=== PATIENT | female | born 1970 | race American Indian/Alaskan Native ===

== ENCOUNTER 2020-03-30 09:57 | Day surgery (SDC) | payer OTHER ==
[~2020-03-30 09:57] MED LIST: Dexamethasone 4 MG/ML 5 ML MDV ONE; Glycopyrrolate 0.2 MG/ML SDV ONE; Lactated Ringers 1,000 ML IV SCH; Midazolam 1 MG/ML 2 ML SDV ONE; Ondansetron 4 MG/2 ML SDV ONE; Propofol 200 MG/20 ML SDV ONE; Rocuronium Bromide 50 MG/5 ML Syringe ONE; Sodium Chloride 0.9% 10 ML SDV IV PRN; Sodium Chloride 0.9% 10 ML Syringe FLUSH PRN; Sodium Chloride 0.9% 2.5 ML Syringe FLUSH PRN; ceFAZolin 1 GM in Premix Bag 1 BAG IV ONE; fentaNYL 250 MCG/5 ML SDV ONE
--- NOTE | 2020-03-30 10:37 | PCM.PREANE ---
Preanesthetic Assessment - Anesthesia/Transfusion/Family Hx Anesthesia History: No Prior Anesthesia Family History of Anesthesia Reaction: Yes Family History of Anesthesia Reaction, Other: mother with intraoperative awareness while paralized during either lap chol Transfusion History: Prior Transfusion Without Reaction - Review of Systems General: No Symptoms Pulmonary: No Symptoms Cardiovascular: No Symptoms Gastrointestinal: No Symptoms Neurological: No Symptoms Other: Reports: None - Physical Assessment NPO Status Date: 03/29/20 Height: 5 ft 3 in Weight: 65.771 kg ASA Class: 2 Mental Status: Alert & Oriented x3 Airway Class: Mallampati = 2 Dentition: Reports: Normal Dentition ROM/Head Extension: Full Lungs: Clear to Auscultation, Normal Respiratory Effort Cardiovascular: Regular Rate, Regular Rhythm - Lab Values: Laboratory Last Values Blood Type A NEGATIVE 03/27/20 11:18 Antibody Screen NEGATIVE 03/27/20 11:18 Crossmatch See Detail 03/27/20 11:18 - Allergies Allergies/Adverse Reactions: Allergies Allergy/AdvReac Type Severity Reaction Status Date / Time No Known Allergies Allergy Verified 03/30/20 10:31 - Blood Blood Available: No - Anesthesia Plan Pre-Op Medication Ordered: None - Acknowledgements Anesthesia Type Planned: General Anesthesia Pt an Appropriate Candidate for the Planned Anesthesia: Yes Alternatives and Risks of Anesthesia Discussed w Pt/Guardian: Yes Pt/Guardian Understands and Agrees with Anesthesia Plan: Yes PreAnesthesia Questionnaire HEENT History: Reports: Other (See Below) Other HEENT History: wears glasses/contacts Cardiovascular History: Reports: Other (See Below) Other Cardiovascular History: hx of murmur during Respiratory History: Reports: None Gastrointestinal History: Reports: None Genitourinary History: Reports: None 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: Dysfunctional Uterine Bleeding, Endometriosis, Musculoskeletal History: Reports: None Neurological History: Reports: None Psychiatric History: Reports: Anxiety Endocrine/Metabolic History: Reports: Other (See Below) Other Endocrine/Metabolic History: graves disease Hematologic History: Reports: Anemia, Other (See Below) Other Hematologic History: receiving iron transfusions, mon-wed-fri of this week Immunologic History: Reports: None Oncologic (Cancer) History: Reports: None Dermatologic History: Reports: None - Past Surgical History Head Surgeries/Procedures: Reports: None HEENT Surgical History: Reports: Tonsillectomy Cardiovascular Surgical History: Reports: None Respiratory Surgical History: Reports: None GI Surgical History: Reports: None Female Surgical History: Reports: Other (See Below) Other Female Surgeries/Procedures: laparoscopy x3 Endocrine Surgical History: Reports: None Neurological Surgical History: Reports: None Musculoskeletal Surgical History: Reports: None Oncologic Surgical History: Reports: None Dermatological Surgical History: Reports: None - SUBSTANCE USE Tobacco Use Status *Q: Never Tobacco User - HOME MEDS Home Medications: Home Meds Ascorbic Acid [Vitamin C] 1 tab PO DAILY 03/24/20 [History] Ferrous Gluconate 1 tab PO DAILY 03/24/20 [History] - CURRENT (IN HOUSE) MEDS Current Meds: Current Medications Lactated Ringer's (Ringers, Lactated) 1,000 mls @ 125 mls/hr IV ASDIRECTED JOCELIN Last Admin: 03/30/20 10:30 Dose: 125 mls/hr Documented by: Sodium Chloride (Saline Flush) 10 ml FLUSH ASDIRECTED PRN PRN Reason: Keep Vein Open Sodium Chloride (Saline Flush) 2.5 ml FLUSH ASDIRECTED PRN PRN Reason: Keep Vein Open Sodium Chloride (Normal Saline) 10 ml IV ASDIRECTED PRN PRN Reason: IV Use Discontinued Medications Dexamethasone (Dexamethasone) Confirm Administered Dose 20 mg .ROUTE .STK-MED ONE Stop: 03/30/20 09:44 Fentanyl (Sublimaze) Confirm Administered Dose 250 mcg .ROUTE .STK-MED ONE Stop: 03/30/20 09:42 Glycopyrrolate (Robinul) Confirm Administered Dose 0.4 mg .ROUTE .STK-MED ONE Stop: 03/30/20 09:45 Cefazolin Sodium/Dextrose 1 gm (/ Premix) 50 mls @ 100 mls/hr IV ONETIME ONE Stop: 03/30/20 05:29 Cefazolin Sodium/Dextrose (Ancef) Confirm Administered Dose 50 mls @ as directed .ROUTE .STK-MED ONE Stop: 03/30/20 09:46 Lidocaine HCl (Xylocaine-Mpf 1%) Confirm Administered Dose 5 ml .ROUTE .STK-MED ONE Stop: 03/30/20 09:43 Midazolam HCl (Versed 1 Mg/Ml) Confirm Administered Dose 2 mg .ROUTE .STK-MED ONE Stop: 03/30/20 09:42 Ondansetron HCl (Zofran) Confirm Administered Dose 4 mg .ROUTE .STK-MED ONE Stop: 03/30/20 09:44 Propofol (Diprivan 20 Ml) Confirm Administered Dose 200 mg .ROUTE .STK-MED ONE Stop: 03/30/20 09:42 Rocuronium [place] (Rocuronium [place]) Confirm Administered Dose 50 mg .ROUTE .STK-MED ONE Stop: 03/30/20 09:43
[2020-03-30] MEDS ORDERED: Methylene Blue 50 MG/10 ML Ampule ONE (11:32)
[2020-03-30] MEDS ORDERED: Fluorescein 5 ML Vial ONE (11:32)
[2020-03-30] MEDS ORDERED: Bupivacaine 0.25% 10 ML SDV ONE (11:33)
[2020-03-30] MEDS ORDERED: Succinylcholine/Sod PF 100 MG/5 ML SYRINGE IV ONE (11:35)
[2020-03-30] MEDS ORDERED: ePHEDrine 50 MG/ML SDV ONE (12:17)
[2020-03-30] MEDS ORDERED: Sodium Chloride 0.9% 20 ML ONE (12:18)
[2020-03-30] MEDS ORDERED: Glycopyrrolate 0.2 MG/ML SDV ONE (12:36)
[2020-03-30] MEDS ORDERED: fentaNYL 100 MCG/2 ML SDV IVPUSH PRN (13:07)
[2020-03-30] MEDS ORDERED: Promethazine 25 MG/ML SDV IM PRN (13:37)
[2020-03-30] MEDS ORDERED: Ondansetron 4 MG/2 ML SDV IVPUSH PRN (13:37)
[2020-03-30] MEDS ORDERED: Ketorolac 30 MG/ML SDV IVPUSH ONE (13:37)
[2020-03-30] MEDS ORDERED: Morphine 4 MG/ML Syringe IVPUSH PRN (13:37)
[2020-03-30] MEDS ORDERED: Acetaminophen/oxyCODONE 325-5 MG Tab PO PRN (13:37)
[2020-03-30] MEDS ORDERED: Belladonna Alkaloids/Opium 16.2-30 MG Supp RECTAL PRN (13:39)
[2020-03-30] MEDS ORDERED: Lactated Ringers 1,000 ML IV SCH (13:45)
--- NOTE | 2020-03-30 13:52 | PCM.OPNOTE ---
- General Post-Op/Procedure Note Date of Surgery/Procedure: 03/30/20 Operative Procedure(s): LAVH/BSO/cystoscopy. Excisional biopsy of right inner thigh skin lesion Findings: Bulky fibroid uterus, bilateral patent ureters. 5 mm right inner thigh skin lesion Pre Op Diagnosis: menorrhagia. Iron deficiency anemia. Skin lesion right thigh Post-Op Diagnosis: Same Anesthesia Technique: General ET Tube Primary Surgeon: Ester Rose Firebreak Cutter: Mar Aguillon Fluid Replacement, Intraop: 1,500 EBL in mLs: 250 Complications: none known Condition: Good Free Text/Narrative:: Dictation [id number]
--- NOTE | 2020-03-30 14:18 | PCM.POSTAN ---
POST ANESTHESIA ASSESSMENT - MENTAL STATUS Mental Status: Alert, Oriented - VITAL SIGNS Vital Signs: Last Vital Signs Temp 36.6 C 03/30/20 13:38 Pulse 57 L 03/30/20 14:15 Resp 10 L 03/30/20 14:15 BP 111/39 L 03/30/20 14:15 Pulse Ox 100 03/30/20 14:15 - RESPIRATORY Respiratory Status: Respiratory Rate WNL, Airway Patent, O2 Saturation Stable - CARDIOVASCULAR CV Status: Pulse Rate WNL, Blood Pressure Stable - GASTROINTESTINAL GI Status: No Symptoms - POST OP HYDRATION Hydration Status: Adequate & Stable
[2020-03-30] MEDS: Acetaminophen/oxyCODONE 325-5 MG Tab PO PRN ×2 (15:41→21:00)
[2020-03-30] MEDS: Ketorolac 30 MG/ML SDV IVPUSH PRN (18:27)
--- NOTE | 2020-03-30 20:31 | OR ---
SURGEON: Ester Rose M.D. DATE OF PROCEDURE: 03/30/2020 PREOPERATIVE DIAGNOSES: 1. Menorrhagia. 2. Iron-deficiency anemia. 3. Right inner thigh skin lesion. POSTOPERATIVE DIAGNOSES: 1. Menorrhagia. 2. Iron-deficiency anemia. 3. Right inner thigh skin lesion. PROCEDURES: 1. Laparoscopic-assisted vaginal hysterectomy with bilateral salpingo- oophorectomy and cystoscopy. 2. Excisional biopsy of a right inner thigh skin lesion. PRIMARY SURGEON: Ester Rose M.D. TRAVEL TICKETING REVIEWER: Mar Aguillon MD ANESTHESIA: General endotracheal anesthesia. FLUIDS: 1500 mL of crystalloid. ESTIMATED BLOOD LOSS: 250 mL. COMPLICATIONS: None known. FINDINGS: A bulky fibroid uterus, mesentery of the anterior abdominal wall adhesion, a 5 mm right raised skin lesion on the inner thigh, and bilateral patent ureters. DISPOSITION: The patient to the PACU, stable. SPECIMEN: Pathology. PROCEDURE DETAILS: Ophelia is a 49-year-old female, who has ongoing difficulties with menorrhagia. She will bleed to the point of passing large blood clots and saturating more than a pad in 30 minutes. Preoperatively, hemoglobin was 9. She underwent IV iron transfusions and increased her hemoglobin to 10.2. She was typed and crossed for 2 units of packed red blood cells. Endometrial biopsy was benign. Options have been discussed with the patient, and she would like to proceed with definitive surgical intervention. Given family history of breast cancer and her personal history of endometriosis, she would prefer that both tubes and ovaries are removed at the time of the procedure. The patient was taken to the operating room, where she underwent general anesthesia, was placed in modified dorsal lithotomy position, and was prepped and draped in the usual sterile fashion. SCDs to the lower extremities. Levy to gravity. She received Ancef prophylactically, and a time-out was performed. The right inner thigh skin lesion was identified. In an elliptical fashion, the skin edges were incised, and the lesion was now excised. Specimen to Pathology. The skin edges were now reapproximated using 4-0 Monocryl in an inverted mattress suture technique. Hemostasis appeared evident. Attention was now turned to placing vaginal instrumentation. A speculum was introduced in the vagina. The anterior lip of the cervix was grasped with a Justyn clamp. A HUMI uterine manipulator was gently placed. The balloon was insufflated. The speculum and Justyn were now removed. Attention was turned abdominally. Gloves were changed. Infraumbilically, 0.25% Marcaine was introduced. Please see the nurse's notes for the total amount of local dispensed during the procedure. A 5 mm infraumbilical midline skin incision was created. The anterior abdominal wall was tented upwards. A Veress needle was gently introduced. A saline hanging drop test was performed. Pneumoperitoneum was achieved. The Veress needle was removed. A 5 mm trocar was introduced with the laparoscope. Peritoneal contents were identified. There was an anterior abdominal wall mesenteric adhesion noted. However, visualization was still adequate at this time. The uterus was bulky but was mobile. Left lower quadrant and right lower quadrant 5 mm trocars were placed after prepping this region with 0.25% Marcaine and creating a 5 mm skin incision. With the trocars in place, I was able to lyse the mesenteric and anterior abdominal wall adhesion with the LigaSure near the edge of the anterior abdominal wall. The right ureter was seen peristalsing well away from the operative field, followed by the left. The left fimbria was able to be grasped and tented upwards, and using the LigaSure, the infundibulopelvic ligament was now secured, cauterized, and transected, followed by the medial leaf of the broad ligament, down through the round ligament, to the upper portion of the cardinal ligament, and to the base of the cardinal ligament. At this point, I was able to tent the anterior uterovesical peritoneum upwards and incise this using the LigaSure, mobilizing the bladder away from the lower uterine segment and the cervix. In a similar fashion, this was performed on the patient's right side. I was able to secure the fimbria and secure the infundibulopelvic ligament down through the broad ligament and through the round ligament to the upper portion of the cardinal ligament and the base of the cardinal ligament. The patient had a fair amount of back bleeding. I did take extra steps with extra cautery with the LigaSure prior to transecting any of the pedicles. All laparoscopic instruments were now removed. Pneumoperitoneum was released. Attention was turned vaginally. A weighted speculum was placed in the vagina. An anterior [place] was placed in the anterior cul-de-sac, and the cervix was grasped with a Justyn clamp. The cervix was now circumscribed with Bovie cautery anteriorly and posteriorly. The overlying mucosa was dissected away from the underlying peritoneum. The posterior peritoneum was tented downwards and entered sharply. A longer weighted speculum replaced the shorter. The anterior peritoneum was also entered, and the [place] was placed to mobilize the bladder away from the uterus. The back-filled bladder was now released. A Yusuf clamp was utilized to secure the uterosacral ligament on either side, transect it, and suture ligate it with 2-0 Vicryl. A further pedicle on the left side was able to now be secured, transected, and suture ligated. Two further pedicles on the right side were now able to be secured with a Yusuf clamp, transected, and suture ligated. The uterus, fallopian tubes, and ovaries were now removed in their entirety and will be sent to Pathology for further analysis. The pedicles were inspected. The uterosacral ligaments were plicated to the vaginal apex on either side. The posterior cul-de-sac was closed using a culdoplasty suture with 2-0 Vicryl, reefing through the left uterosacral ligament, incorporating the posterior peritoneum, and through the right uterosacral ligament pedicle. The cuff was now closed using 0 Vicryl in a continuous running locked fashion and suturing and then tying down the culdoplastic suture. Hemostasis appeared evident. Fluorescein had been introduced in the IV. The Levy catheter balloon was now released. The catheter was removed, and a cystoscope was introduced in the bladder using normal saline as a distention media. I was able to visualize the dome of the bladder, which appeared to be intact, followed by the trigone. The right ureteral orifice followed by the left ureteral orifice had fluorescein- dyed urine streaming from them with good jets noted, helping to ensure ureteral patency. The bladder was now drained. The cystoscope was removed. The Levy catheter was replaced. The vaginal cuff was once again inspected and found to be hemostatic. Attention was now turned to the abdomen once again. Gloves were changed. Pneumoperitoneum was once again achieved. The pelvis and pedicles were inspected, copiously irrigated, and suction dried. The pedicles appeared hemostatic even with relief pressure decreased to 5 mmHg. Therefore, the pelvis once again was irrigated and suction dried. The pneumoperitoneum was released in its entirety. The trocars were removed under direct visualization, followed by the laparoscope and the infraumbilical trocar. The skin edges were reapproximated using 4-0 Monocryl in a subcuticular fashion. Sponge, instrument, and needle counts were correct x2. The patient tolerated the procedure well overall. She will go to the PACU in stable condition. Specimens to pathology. ENZO / NEDA /[id number]
[2020-03-30] MEDS: Docusate Sodium 100 MG Cap PO SCH (21:01)
[2020-03-31] MEDS: Ketorolac 30 MG/ML SDV IVPUSH PRN ×2 (00:39→09:05)
[2020-03-31] MEDS: Acetaminophen/oxyCODONE 325-5 MG Tab PO PRN (04:38)
[2020-03-31 06:21] LABS: BLOOD UREA NITROGEN,BUN 6 mg/dL (7.0-18.0); CARBON DIOXIDE,CO2 24.6 mmol/L (21.0-32.0); CHLORIDE,CL 98 mmol/L (98-107); GLUCOSE RANDOM 121 mg/dL (74-106); POTASSIUM,K 3.9 mmol/L (3.5-5.1); SODIUM,NA 130 mmol/L (136-145)
--- NOTE | 2020-03-31 08:26 | PCM.SURGPN ---
- General Info Date of Service: 03/31/20 POD#: 1 Functional Status: Reports: Pain Controlled, Tolerating Diet, Ambulating - Review of Systems General: Reports: Fatigue. Denies: Fever, Weakness Pulmonary: Denies: Shortness of Breath Cardiovascular: Denies: Chest Pain, Palpitations, Lightheadedness Gastrointestinal: Reports: Abdominal Pain (some cramping, pain meds help alleviate). Denies: Nausea, Vomiting Genitourinary: Denies: Flank Pain Musculoskeletal: Reports: No Symptoms Skin: Reports: No Symptoms Neurological: Reports: No Symptoms Psychiatric: Reports: No Symptoms - Patient Data Vitals - Most Recent: Last Vital Signs Temp 36.6 C 03/31/20 04:33 Pulse 59 L 03/31/20 04:33 Resp 14 03/31/20 04:33 BP 104/59 L 03/31/20 04:33 Pulse Ox 98 03/31/20 04:33 Weight - Most Recent: 65.771 kg I&O - Last 24 Hours: Intake & Output 03/30/20 03/31/20 03/31/20 22:59 06:59 14:59 Intake Total 635 3680 Output Total 1200 Balance 635 2480 Lab Results Last 24 Hrs: Laboratory Results - last 24 hr 03/27/20 03/31/20 03/31/20 Range/Units 11:18 05:22 05:22 WBC 12.35 H (4.0-11.0) K/uL RBC 3.78 L (4.30-5.90) M/uL Hgb 8.9 L (12.0-16.0) g/dL Hct 29.4 L (36.0-46.0) % MCV 77.8 L (80.0-98.0) fL MCH 23.5 L (27.0-32.0) pg MCHC 30.3 L (31.0-37.0) g/dL RDW Std Deviation 57.4 (28.0-62.0) fl RDW Coeff of [place] 21 H (11.0-15.0) % Plt Count 339 (150-400) K/uL MPV 10.50 (7.40-12.00) fL Neut % (Auto) 82.7 H (48.0-80.0) % Lymph % (Auto) 11.5 L (16.0-40.0) % Iron % (Auto) 5.6 (0.0-15.0) % Eos % (Auto) 0.1 (0.0-7.0) % Baso % (Auto) 0.1 (0.0-1.5) % Neut # (Auto) 10.2 H (1.4-5.7) K/uL Lymph # (Auto) 1.4 (0.6-2.4) K/uL Iron # (Auto) 0.7 (0.0-0.8) K/uL Eos # (Auto) 0.0 (0.0-0.7) K/uL Baso # (Auto) 0.0 (0.0-0.1) K/uL Nucleated RBC % 0.0 /100WBC Nucleated RBCs # 0 K/uL Sodium 130 L (136-145) mmol/L Potassium 3.9 (3.5-5.1) mmol/L Chloride 98 (98-107) mmol/L Carbon Dioxide 24.6 (21.0-32.0) mmol/L BUN 6 L (7.0-18.0) mg/dL Creatinine 0.8 (0.6-1.0) mg/dL Est Cr Clr Drug Dosing 71.14 mL/min Estimated GFR (MDRD) > 60.0 ml/min Glucose 121 H (74-106) mg/dL Calcium 8.2 L (8.5-10.1) mg/dL Crossmatch See Detail Med Orders - Current: Current Medications Belladonna Alkaloids/Opium (B & O Supprettes No. 15a) 1 supp RECTAL Q4H PRN PRN Reason: Abdominal Pain Last Admin: 03/30/20 16:17 Dose: 1 supp Documented by: Docusate Sodium (Colace) 100 mg PO BID [facility] Last Admin: 03/30/20 21:01 Dose: 100 mg Documented by: Lactated Ringer's (Ringers, Lactated) 1,000 mls @ 125 mls/hr IV ASDIRECTED [facility] Last Admin: 03/30/20 15:41 Dose: 125 mls/hr Documented by: Ketorolac Tromethamine (Toradol) 30 mg IVPUSH Q6H PRN PRN Reason: Pain (severe 7-10) Stop: 04/04/20 13:37 Last Admin: 03/31/20 00:39 Dose: 30 mg Documented by: Morphine Sulfate (Morphine) 4 mg IVPUSH Q2H PRN PRN Reason: Pain (severe 7-10) Ondansetron HCl (Zofran) 4 mg IVPUSH Q6H PRN PRN Reason: Nausea/Vomiting Last Admin: 03/30/20 15:41 Dose: 4 mg Documented by: Oxycodone/Acetaminophen (Percocet 325-5 Mg) 1 tab PO Q4H PRN PRN Reason: Pain (moderate 4-6) Oxycodone/Acetaminophen (Percocet 325-5 Mg) 2 tab PO Q4H PRN PRN Reason: Pain (moderate 4-6) Last Admin: 03/31/20 04:38 Dose: 2 tab Documented by: Promethazine HCl (Phenergan) 25 mg IM Q6H PRN PRN Reason: Nausea/Vomiting Sodium Chloride (Saline Flush) 10 ml FLUSH ASDIRECTED PRN PRN Reason: Keep Vein Open Sodium Chloride (Saline Flush) 2.5 ml FLUSH ASDIRECTED PRN PRN Reason: Keep Vein Open Sodium Chloride (Normal Saline) 10 ml IV ASDIRECTED PRN PRN Reason: IV Use Discontinued Medications Bupivacaine HCl (Sensorcaine-Mpf 0.25%) Confirm Administered Dose 10 ml .ROUTE .STK-MED ONE Stop: 03/30/20 11:34 Dexamethasone (Dexamethasone) Confirm Administered Dose 20 mg .ROUTE .STK-MED ONE Stop: 03/30/20 09:44 Ephedrine Sulfate (Ephedrine Sulfate) Confirm Administered Dose 50 mg .ROUTE .STK-MED ONE Stop: 03/30/20 12:18 Fentanyl (Sublimaze) Confirm Administered Dose 250 mcg .ROUTE .STK-MED ONE Stop: 03/30/20 09:42 Fentanyl (Sublimaze) 50 mcg IVPUSH Q5M PRN PRN Reason: Pain (severe 7-10) Stop: 03/30/20 15:00 Last Admin: 03/30/20 14:04 Dose: 50 mcg Documented by: Fluorescein Sodium (Ak-Fluor) Confirm Administered Dose 5 ml .ROUTE .STK-MED ONE Stop: 03/30/20 11:33 Glycopyrrolate (Robinul) Confirm Administered Dose 0.4 mg .ROUTE .STK-MED ONE Stop: 03/30/20 09:45 Glycopyrrolate (Robinul) Confirm Administered Dose 0.2 mg .ROUTE .STK-MED ONE Stop: 03/30/20 12:37 Cefazolin Sodium/Dextrose 1 gm (/ Premix) 50 mls @ 100 mls/hr IV ONETIME ONE Stop: 03/30/20 05:29 Last Admin: 03/30/20 11:58 Dose: 100 mls/hr Documented by: Lactated Ringer's (Ringers, Lactated) 1,000 mls @ 125 mls/hr IV ASDIRECTED JOCELIN Last Admin: 03/30/20 10:30 Dose: 125 mls/hr Documented by: Cefazolin Sodium/Dextrose (Ancef) Confirm Administered Dose 50 mls @ as directed .ROUTE .STK-MED ONE Stop: 03/30/20 09:46 Sodium Chloride (Normal Saline) Confirm Administered Dose 20 mls @ as directed .ROUTE .STK-MED ONE Stop: 03/30/20 12:19 Ketorolac Tromethamine (Toradol) 30 mg IVPUSH ONETIME ONE Stop: 03/30/20 13:38 Last Admin: 03/30/20 13:55 Dose: 30 mg Documented by: Lidocaine HCl (Xylocaine-Mpf 1%) Confirm Administered Dose 5 ml .ROUTE .STK-MED ONE Stop: 03/30/20 09:43 Methylene Blue (Provayblue) Confirm Administered Dose 50 mg .ROUTE .STK-MED ONE Stop: 03/30/20 11:33 Midazolam HCl (Versed 1 Mg/Ml) Confirm Administered Dose 2 mg .ROUTE .STK-MED ONE Stop: 03/30/20 09:42 Ondansetron HCl (Zofran) Confirm Administered Dose 4 mg .ROUTE .STK-MED ONE Stop: 03/30/20 09:44 Propofol (Diprivan 20 Ml) Confirm Administered Dose 200 mg .ROUTE .STK-MED ONE Stop: 03/30/20 09:42 Rocuronium [place] (Rocuronium [place]) Confirm Administered Dose 50 mg .ROUTE .STK-MED ONE Stop: 03/30/20 09:43 - Exam Wound/Incisions: Dressing Dry and Intact General: Alert, Oriented Lungs: Normal Respiratory Effort Cardiovascular: Regular Rate, Regular Rhythm GI/Abdominal Exam: Normal Bowel Sounds, Soft. No: Guarding, Rigid Extremities: Pedal Edema (trace). No: Leroy's Sign Skin: Warm, Dry, Intact Neurological: No New Focal Deficit Psy/Mental Status: Alert, Normal Affect, Normal Mood Sepsis Event Note - Evaluation Sepsis Screening Result: No Definite Risk - Focused Exam Vital Signs: Vital Signs Temp Pulse Resp BP Pulse Ox 03/31/20 04:33 36.6 C 59 L 14 104/59 L 98 03/31/20 00:35 36.8 C 70 15 98/56 L 96 - Problem List & Annotations (1) Status post hysterectomy SNOMED Code(s): 174952487, 922312847, 018774254 Code(s): Z90.710 - ACQUIRED ABSENCE OF BOTH CERVIX AND UTERUS Status: Acute Current Visit: Yes (2) Menorrhagia SNOMED Code(s): 316629367 Code(s): N92.0 - EXCESSIVE AND FREQUENT MENSTRUATION WITH REGULAR CYCLE Status: Acute Current Visit: Yes - Problem List Review Problem List Initiated/Reviewed/Updated: Yes - My Orders Last 24 Hours: Active Orders 24 hr Category Date Time Status Patient Status [ADT] Routine ADT 03/30/20 13:37 Active Antiembolic Devices [RC] PER UNIT ROUTINE Care 03/30/20 13:38 Active Notify Provider Intake and Out [RC] ASDIRECTED Care 03/30/20 13:37 Active Notify Provider Vital Signs [RC] ASDIRECTED Care 03/30/20 13:37 Active Oxygen Therapy [RC] ASDIRECTED Care 03/30/20 13:37 Active RT Incentive Spirometry [RC] Q2HWA Care 03/30/20 13:37 Active Ready for Discharge [RC] PER UNIT ROUTINE Care 03/31/20 08:22 Ordered Up With Assistance [RC] PER UNIT ROUTINE Care 03/30/20 13:37 Active Up ad Ina [RC] PER UNIT ROUTINE Care 03/30/20 13:37 Active Urinary Catheter Removal [RC] Per Unit Routine Care 03/30/20 13:37 Active Vital Signs [RC] PER UNIT ROUTINE Care 03/30/20 13:37 Active Regular Diet [DIET] Diet 03/30/20 Dinner Active Acetaminophen/oxyCODONE [Percocet 325-5 MG] Med 03/30/20 13:37 Active 1 tab PO Q4H PRN Acetaminophen/oxyCODONE [Percocet 325-5 MG] Med 03/30/20 13:37 Active 2 tab PO Q4H PRN Belladonna/Opium [B & O Supprettes No. 15A] Med 03/30/20 13:39 Active 1 supp RECTAL Q4H PRN Docusate Sodium [Colace] Med 03/30/20 21:00 Active 100 mg PO BID Ketorolac [Toradol] Med 03/30/20 13:37 Active 30 mg IVPUSH Q6H PRN Lactated Ringers [Ringers, Lactated] 1,000 ml Med 03/30/20 13:45 Active IV ASDIRECTED Morphine Med 03/30/20 13:37 Active 4 mg IVPUSH Q2H PRN Ondansetron [Zofran] Med 03/30/20 13:37 Active 4 mg IVPUSH Q6H PRN Promethazine [Phenergan] Med 03/30/20 13:37 Active 25 mg IM Q6H PRN Perineal Care [OM.PC] Per Unit Routine Oth 03/30/20 13:38 Ordered Peripheral IV Discontinue [OM.PC] Routine Oth 03/30/20 13:37 Ordered Sequential Compression Device [OM.PC] Per Unit Routine Oth 03/30/20 13:37 Ordered Resuscitation Status Routine Resus Stat 03/30/20 13:37 Ordered Medication Orders Belladonna Alkaloids/Opium (B & O Supprettes No. 15a) 1 supp RECTAL Q4H PRN PRN Reason: Abdominal Pain Last Admin: 03/30/20 16:17 Dose: 1 supp Documented by: JACKIE Docusate Sodium (Colace) 100 mg PO BID [facility] Last Admin: 03/30/20 21:01 Dose: 100 mg Documented by: GRAYSON Lactated Ringer's (Ringers, Lactated) 1,000 mls @ 125 mls/hr IV ASDIRECTED JOCELIN Last Admin: 03/30/20 15:41 Dose: 125 mls/hr Documented by: JACKIE Ketorolac Tromethamine (Toradol) 30 mg IVPUSH Q6H PRN PRN Reason: Pain (severe 7-10) Stop: 04/04/20 13:37 Last Admin: 03/31/20 00:39 Dose: 30 mg Documented by: Admin: 03/30/20 18:27 Dose: 30 mg Documented by: JACKIE Morphine Sulfate (Morphine) 4 mg IVPUSH Q2H PRN PRN Reason: Pain (severe 7-10) Ondansetron HCl (Zofran) 4 mg IVPUSH Q6H PRN PRN Reason: Nausea/Vomiting Last Admin: 03/30/20 15:41 Dose: 4 mg Documented by: JACKIE Oxycodone/Acetaminophen (Percocet 325-5 Mg) 1 tab PO Q4H PRN PRN Reason: Pain (moderate 4-6) Oxycodone/Acetaminophen (Percocet 325-5 Mg) 2 tab PO Q4H PRN PRN Reason: Pain (moderate 4-6) Last Admin: 03/31/20 04:38 Dose: 2 tab Documented by: Admin: 03/30/20 21:00 Dose: 2 tab Documented by: Admin: 03/30/20 15:41 Dose: 2 tab Documented by: JACKIE Promethazine HCl (Phenergan) 25 mg IM Q6H PRN PRN Reason: Nausea/Vomiting Sodium Chloride (Saline Flush) 10 ml FLUSH ASDIRECTED PRN PRN Reason: Keep Vein Open Sodium Chloride (Saline Flush) 2.5 ml FLUSH ASDIRECTED PRN PRN Reason: Keep Vein Open Sodium Chloride (Normal Saline) 10 ml IV ASDIRECTED PRN PRN Reason: IV Use - Assessment Assessment (Free Text/Narrative):: POD 1 status post LAVH/BSO - Plan Plan (Free Text/Narrative):: VS are stable and labs relatively stable given chronic anemia. Will continue oral iron supplementation. Patient feels ready to go home. Discharge instructions reviewed. Follow up at [facility] 2 and 6 weeks. Infection and bleeding warnings reviewed. Will reevaluate CBC, BMP at postop visit. Discharge to home today.
[2020-03-31] MEDS: Docusate Sodium 100 MG Cap PO SCH (09:04)
== END 2020-03-31 10:00 | disposition home or self-care (01) ==
LOC: MW.SDS 09:57 → MW.MS 15:35 → MW.SDS 03-31 10:00
PROVIDERS: ATTEND Obstetrics & Gynecology
DX: D25.1 Intramural leiomyoma of uterus (principal); D25.0 Submucous leiomyoma of uterus; D25.2 Subserosal leiomyoma of uterus; D17.23 Benign lipomatous neoplasm of skin and subcutaneous tissue of right leg; N83.01 Follicular cyst of right ovary; N83.12 Corpus luteum cyst of left ovary; Z98.890 Other specified postprocedural states; Z79.899 Other long term (current) drug therapy
CPT/HCPCS: 27327; 36415; 58552; 80048; 85025; 86850; 86900; 86901; 86920; 86921; 86922; 88305; 88307; A9270; J0330; J0690; J1100; J1885; J2001; J2250; J2405; J2704; J3010; J3490; J7120; 00944

== ENCOUNTER 2021-12-21 13:32 | Emergency (ER) | payer OTHER | END 2021-12-21 15:20 | disposition left against medical advice (07) | LOC: MW.ED 13:32 | DX: Z53.21 Procedure and treatment not carried out due to patient leaving prior to being seen by health care provider (principal) ==